=== PATIENT | female | born 1985 | race African-American/Black ===

== ENCOUNTER 2017-08-14 01:53 | Emergency (ER) | payer OTHER ==
[2017-08-14 03:18] LABS: Hematocrit 33.5 % (36.0-47.0); Mean Platelet Volume 11.2 fL (7.4-10.4); Red Blood Cell (RBC) Count 4.51 mill/uL (4.20-5.40); White Blood Cell (WBC) Count 12.4 thou/uL (4.8-10.8)
[2017-08-14 03:26] LABS: ALT (SGPT) 9 U/L (8-55); AST (SGOT) 12 U/L (5-34); Alkaline Phosphatase 67 U/L (40-150); Anion Gap 10 mmol/L (10-20); BUN (Urea Nitrogen) 22 mg/dL (7.0-18.7); Bilirubin, Total 0.2 mg/dL (0.2-1.2); CK (CPK) 103 U/L (29-168); Calc. Creatinine Clearance 0 mL/min (70-130); Calcium 9.7 mg/dL (7.8-10.44); Carbon Dioxide 24 mmol/L (22-29); Chloride 105 mmol/L (98-107); Estimated GFR-MDRD 80; Globulin 3.8 g/dL (2.4-3.5); Protein, Total 7.8 g/dL (6.0-8.3)
[2017-08-14 03:31] LABS: Troponin I Less than 0.010 ng/mL (< 0.028)
[2017-08-14 03:32] LABS: #Lymphocytes 2.7 thou/uL (1.20-3.40); #Monocytes 0.8 thou/uL (0.11-0.59); #Neutrophils 8.9 thou/uL (1.40-6.50); %Basophils 0.2 % (0.0-1.0); %Eosinophils 0.2 % (0.0-10.0); %Lymphocytes 21.9 % (21.0-51.0); %Monocytes 6.4 % (0.0-10.0)
--- NOTE | 2017-08-14 08:28 | RAD ---
SINGLE VIEW OF THE CHEST: COMPARISON: 02/03/08. HISTORY: Coughing up blood. FINDINGS: Single view of the chest shows a normal sized cardiomediastinal silhouette. There is no evidence of consolidation, mass, or pleural effusion. The bones are unremarkable. IMPRESSION: No evidence of acute cardiopulmonary disease. POS: [facility]
== END 2017-08-14 04:55 | disposition home or self-care (01) ==
LOC: ERS 01:53
DX: F43.9 Reaction to severe stress, unspecified (principal); R94.31 Abnormal electrocardiogram [ECG] [EKG]; F41.9 Anxiety disorder, unspecified; Z79.899 Other long term (current) drug therapy
CPT/HCPCS: 36415; 71010; 80053; 82553; 84484; 85025; 93005

== ENCOUNTER 2017-08-19 10:06 | Emergency (ER) | payer OTHER ==
[2017-08-19 10:42] LABS: Hematocrit 36.9 % (36.0-47.0); Red Blood Cell (RBC) Count 4.92 mill/uL (4.20-5.40); White Blood Cell (WBC) Count 11.1 thou/uL (4.8-10.8)
[2017-08-19 10:43] LABS: #Basophils 0.1 thou/uL (0.0-0.2); #Eosinphils 0.1 thou/uL (0.0-0.7); #Lymphocytes 3.5 thou/uL (1.20-3.40); #Monocytes 0.5 thou/uL (0.11-0.59); #Neutrophils 6.9 thou/uL (1.40-6.50); %Basophils 0.8 % (0.0-1.0); %Eosinophils 1.1 % (0.0-10.0); %Lymphocytes 31.5 % (21.0-51.0); %Monocytes 4.6 % (0.0-10.0); Mean Platelet Volume 10.7 fL (7.4-10.4)
[2017-08-19 10:44] LABS: Hypochromia SLIGHT = 6-15 cells (100X) (0-5/hpf); Microcytosis SLIGHT = 6-15 cells (100X) (0-5/hpf); Polychromasia SLIGHT = 2-3 cells (100X) (0-2/hpf)
[2017-08-19 10:47] LABS: PTT 27.5 SEC (22.9-36.1)
[2017-08-19 11:00] LABS: AST (SGOT) 12 U/L (5-34); Alkaline Phosphatase 65 U/L (40-150); Anion Gap 13 mmol/L (10-20); BUN (Urea Nitrogen) 13 mg/dL (7.0-18.7); Bilirubin, Total 0.5 mg/dL (0.2-1.2); Calc. Creatinine Clearance 0 mL/min (70-130); Calcium 9.5 mg/dL (7.8-10.44); Carbon Dioxide 29 mmol/L (22-29); Chloride 102 mmol/L (98-107); Estimated GFR-MDRD 85; Globulin 3.7 g/dL (2.4-3.5); Protein, Total 7.7 g/dL (6.0-8.3)
[2017-08-19 11:01] LABS: ALT (SGPT) 12 U/L (8-55); CK (CPK) 113 U/L (29-168)
[2017-08-19 11:04] LABS: Troponin I Less than 0.010 ng/mL (< 0.028)
--- NOTE | 2017-08-19 11:23 | RAD ---
FRONTAL VIEW CHEST: Date: 08/19/17 COMPARISON: . INDICATION: Chest pain with nausea. FINDINGS: Lungs are clear. Cardiac silhouette is normal in size. No vascular congestion, effusion, or discrete pneumothorax. Osseous structures are within normal limits. IMPRESSION: No focal consolidation. POS: [facility]
[2017-08-19 11:30] LABS: Lipase 52 U/L (8-78)
[2017-08-19] MEDS ORDERED: Ketorolac Tromethamine 60 MG/2 ML VIAL ONE (11:49)
--- NOTE | 2017-10-02 15:07 | EKG ---
Test Reason : Blood Pressure : / mmHG Vent. Rate : 070 BPM Atrial Rate : 070 BPM P-R Int : 128 ms QRS Dur : 114 ms QT Int : 434 ms P-R-T Axes : 037 057 007 degrees QTc Int : 468 ms Normal sinus rhythm Nonspecific T wave abnormality Prolonged QT Abnormal ECG When compared with ECG of 14-aug-2017 No changes Confirmed by LOU LÓPEZ D.O. ([id number]), movie editor MARKELL NUNEZ ([id number]) on 10/02/2017 3:07:42 PM Referred By: Confirmed By:LOU LÓPEZ D.O.
== END 2017-08-19 12:05 | disposition home or self-care (01) ==
LOC: ERS 10:06
DX: R07.2 Precordial pain (principal); F41.9 Anxiety disorder, unspecified; Z79.899 Other long term (current) drug therapy
CPT/HCPCS: 36415; 71010; 80053; 82553; 83690; 84484; 85025; 85610; 85730; 93005; 96372; J1885

== ENCOUNTER 2017-09-30 18:26 | Emergency (ER) | payer OTHER ==
--- NOTE | 2017-09-30 19:49 | RAD ---
CHEST TWO VIEWS: 09/30/17 HISTORY: Cough. Heart size and mediastinum are within normal limits. The lungs are clear of infiltrates. There are no significant bony findings. IMPRESSION: No active intrathoracic disease. POS: [facility]
== END 2017-09-30 20:15 | disposition home or self-care (01) ==
LOC: SCSER 18:26
DX: O99.89 Other specified diseases and conditions complicating pregnancy, childbirth and the puerperium (principal); R05 Cough; O99.341 Other mental disorders complicating pregnancy, first trimester; F41.9 Anxiety disorder, unspecified; Z3A.01 Less than 8 weeks gestation of pregnancy
CPT/HCPCS: 71020

== ENCOUNTER 2018-10-17 21:16 | Emergency (ER) | payer OTHER ==
[2018-10-17 22:14] LABS: Pregnancy Test - Urine (BHCG) Negative (Negative)
[2018-10-17] MEDS ORDERED: Ketorolac Tromethamine 60 MG/2 ML VIAL ONE (22:14)
[2018-10-17] MEDS ORDERED: Acetaminophen 500 MG TAB ONE (22:14)
[2018-10-17] MEDS ORDERED: diphenhydrAMINE 25 MG CAP ONE (22:14)
[2018-10-17] MEDS ORDERED: Prochlorperazine 10 MG/2 ML VIAL ONE (22:14)
[2018-10-17 22:15] LABS: Pregu Control Background? CLEAR/WHITE (CLR/WHITE); Pregu Control Bar Appear? YES (CONTROL BAR); Specific Gravity 1.023 (1.002-1.036)
== END 2018-10-17 22:58 | disposition home or self-care (01) ==
LOC: SCSER 21:16
DX: G43.909 Migraine, unspecified, not intractable, without status migrainosus (principal); F41.9 Anxiety disorder, unspecified; F32.9 Major depressive disorder, single episode, unspecified; Z79.899 Other long term (current) drug therapy
CPT/HCPCS: 81025; 96372; J0780; J1885

== ENCOUNTER 2022-09-01 10:12 | Inpatient (IN) | payer OTHER ==
[2022-09-01 11:05] LABS: Bilirubin Negative (Negative); Blood, Urine Negative (Negative); Clarity Clear (Clear); Glucose, Urine (Dipstick) Negative (Negative); Ketone, Urine Negative (Negative); Leukocyte Negative (Negative); Nitrite Negative (Negative); Protein, Urine (Dipstick) Negative (Neg-Trace); Specific Gravity, Urine 1.025 (1.005-1.030); Urobilinogen 0.2 mg/dL (Less than 2)
[2022-09-01 11:06] LABS: Bacteria/HPF None Seen HPF (None Seen); RBC/HPF 0-3 HPF (0-3); Squamous Epithelial 0-3 HPF (0-3); WBC/HPF 0-3 HPF (0-3)
[2022-09-01 11:25] LABS: Amphetamine Not Detected (NotDetected); Barbiturates Screen Not Detected (NotDetected); Benzodiazepine Screen Not Detected (NotDetected); Cocaine Metabolite Screen Not Detected (NotDetected); Methadone Not Detected (NotDetected); Methamphetamine Not Detected (NotDetected); Opiate Screen Not Detected (NotDetected); Oxycodone Screen Not Detected (NotDetected); Phencyclidine (PCP) Not Detected (NotDetected); THC/Cannabinoid Screen Not Detected (NotDetected); Tricyclic Screen Not Detected (NotDetected)
[2022-09-01 11:26] LABS: ALT (SGPT) 10 U/L (8-55); AST (SGOT) 13 U/L (5-34); Acetaminophen Less than 10.0 mcg/mL (10.0-30.0); Albumin 4.1 g/dL (3.5-5.0); Alcohol Less than 10 mg/dL (Less than 10); Alkaline Phosphatase 67 U/L (40-110); Anion Gap 12 mmol/L (10-20); BUN (Urea Nitrogen) 12 mg/dL (7.0-18.7); Bilirubin, Total 0.4 mg/dL (0.2-1.2); Calc. Creatinine Clearance 0 mL/min (70-130); Calcium 8.8 mg/dL (7.8-10.44); Carbon Dioxide 25 mmol/L (22-29); Chloride 106 mmol/L (98-107); Estimated GFR 79; Globulin 3.2 g/dL (2.4-3.5); Glucose 73 mg/dL (70-105); Potassium 3.5 mmol/L (3.5-5.1); Protein, Total 7.3 g/dL (6.0-8.3); Salicylate Less than 8.0 mg/dL (15.0-30.0); Sodium 139 mmol/L (136-145)
[2022-09-01 11:29] LABS: Mean Corpuscular HGB CONC 31.8 g/dL (32.0-36.0); Mean Corpuscular Hemoglobin 23.7 pg (27.0-31.0); Mean Corpuscular Volume 74.8 fl (78.0-98.0); Mean Platelet Volume 9.2 fL (7.4-10.4); Platelet Count 180 10x3/uL (130-400); RBC Distribution Width 14.4 % (11.5-14.5); Red Blood Cell (RBC) Count 4.65 mill/uL (4.20-5.40); White Blood Cell (WBC) Count 9.1 10x3/uL (4.8-10.8)
[2022-09-01 11:59] LABS: #Eosinphils 0.1 thou/uL (0.0-0.7); #Lymphocytes 2.3 thou/uL (1.20-3.40); #Monocytes 0.6 thou/uL (0.11-0.59); #Neutrophils 6.1 thou/uL (1.40-6.50); %Basophils 0.1 % (0.0-1.0); %Eosinophils 0.6 % (0.0-10.0); %Lymphocytes 25.7 % (21.0-51.0); %Monocytes 6.9 % (0.0-10.0); %Neutrophils 66.7 % (42.0-75.0); Band 8 % (5-11); Eosinophils 1 % (0-10); Lymphocytes 25 % (21-51); MDiff Complete? YES; Microcytosis SLIGHT = 6-15 cells (100X) (0-5/hpf); Monocytes 6 % (0-10); Neutrophil 60 % (42-75); Polychromasia SLIGHT = 2-3 cells (100X) (0-2/hpf)
[2022-09-01] MEDS ORDERED: Acetaminophen 325 MG TAB PO PRN (14:49)
[2022-09-01 17:14] VITALS: BMI 32.0
[2022-09-02] MEDS: Melatonin 3 MG TAB PO PRN ×2 (02:24→22:14)
[2022-09-02 05:46] LABS: #Lymphocytes 2.1 thou/uL (1.20-3.40); #Monocytes 0.5 thou/uL (0.11-0.59); #Neutrophils 5.4 thou/uL (1.40-6.50); %Basophils 0.1 % (0.0-1.0); %Eosinophils 0.3 % (0.0-10.0); %Lymphocytes 26.1 % (21.0-51.0); %Monocytes 6.5 % (0.0-10.0); %Neutrophils 66.9 % (42.0-75.0); Hemoglobin 9.8 g/dL (12.0-16.0); Mean Corpuscular HGB CONC 31.7 g/dL (32.0-36.0); Mean Corpuscular Hemoglobin 23.6 pg (27.0-31.0); Mean Corpuscular Volume 74.3 fl (78.0-98.0); Mean Platelet Volume 8.3 fL (7.4-10.4); Platelet Count 153 10x3/uL (130-400); RBC Distribution Width 14.5 % (11.5-14.5); Red Blood Cell (RBC) Count 4.14 mill/uL (4.20-5.40)
[2022-09-02 06:01] LABS: Anion Gap 12 mmol/L (10-20); BUN (Urea Nitrogen) 8 mg/dL (7.0-18.7); Calc. Creatinine Clearance 136 mL/min (70-130); Calcium 8.7 mg/dL (7.8-10.44); Carbon Dioxide 23 mmol/L (22-29); Chloride 108 mmol/L (98-107); Estimated GFR 92; Glucose 113 mg/dL (70-105); Potassium 3.4 mmol/L (3.5-5.1); Sodium 140 mmol/L (136-145)
[2022-09-02] MEDS ORDERED: Potassium Chloride 20 MEQ TAB PO SCH (06:15)
[2022-09-02] MEDS ORDERED: Electrolyte Replacement Protocol 1 EACH FS SCH (08:00)
[2022-09-02] MEDS ORDERED: Electrolyte Replacement Protocol FS PRN (08:30)
[2022-09-02 08:52] LABS: Phosphorus 3.9 mg/dL (2.3-4.7)
[2022-09-02 08:53] LABS: Magnesium 1.9 mg/dL (1.6-2.6)
[2022-09-02] MEDS ORDERED: Magnesium 2 GM/50 ML(in water) 2 GM in Premix Bag 1 BAG IVPB SCH (10:00)
[2022-09-02 11:15] LABS: Potassium 3.8 mmol/L (3.5-5.1)
[2022-09-02] MEDS ORDERED: Melatonin 3 MG TAB PO SCH (23:59)
[2022-09-03 08:47] VITALS: BP 132/84; TEMP 97.9
[2022-09-04] MEDS ORDERED: FLU VACC QS2022-23(6MOS UP)/PF 60 MCG/0.5 ML SYRINGE IM ONE (17:15)
== END 2022-09-03 12:15 | disposition short-term general hospital (02) | DRG 918 ==
LOC: ERS 10:12 → NEURO 16:43
PROVIDERS: ADMIT Student in an Organized Health Care Education/Training Program; ATTEND Internal Medicine
DX: T43.292A Poisoning by other antidepressants, intentional self-harm, initial encounter (principal); F32.A Depression, unspecified; F17.210 Nicotine dependence, cigarettes, uncomplicated; T43.592A Poisoning by other antipsychotics and neuroleptics, intentional self-harm, initial encounter; T43.222A Poisoning by selective serotonin reuptake inhibitors, intentional self-harm, initial encounter; E78.5 Hyperlipidemia, unspecified; E87.6 Hypokalemia; E83.42 Hypomagnesemia; E66.9 Obesity, unspecified; Z20.822 Contact with and (suspected) exposure to COVID-19; D50.9 Iron deficiency anemia, unspecified; Z90.49 Acquired absence of other specified parts of digestive tract; Y92.9 Unspecified place or not applicable; Z98.51 Tubal ligation status; Z98.890 Other specified postprocedural states; Z68.32 Body mass index [BMI] 32.0-32.9, adult
CPT/HCPCS: 36415; 80048; 80053; 80306; 80307; 81003; 83735; 84100; 85025; 93005; J3475; U0003; U0005

== ENCOUNTER 2022-10-20 22:46 | Emergency (ER) | payer OTHER | END 2022-10-21 02:40 | disposition left against medical advice (07) | LOC: ERS 22:46 | DX: Z53.21 Procedure and treatment not carried out due to patient leaving prior to being seen by health care provider (principal) ==

== ENCOUNTER 2024-12-01 13:29 | Emergency (ER) | payer SELFPAY ==
[2024-12-01 14:38] LABS: Troponin I Less than 0.010 ng/mL (< 0.028)
[2024-12-01 15:55] LABS: ALT (SGPT) 11 U/L (Less than 34); AST (SGOT) 21 U/L (11-34); Albumin 3.6 g/dL (3.1-4.5); Alkaline Phosphatase 69 U/L (40-110); Anion Gap 13 mmol/L (10-20); BUN (Urea Nitrogen) 9 mg/dL (7.0-18.7); Bilirubin, Total 0.3 mg/dL (0.3-1.2); Calc. Creatinine Clearance 0 mL/min (70-130); Calcium 9.2 mg/dL (7.8-10.44); Carbon Dioxide 20 mmol/L (22-29); Chloride 108 mmol/L (98-107); Estimated GFR 91; Globulin 3.7 g/dL (2.4-3.5); Glucose 145 mg/dL (70-105); Lipase 39 U/L (8-78); Potassium 3.9 mmol/L (3.5-5.1); Protein, Total 7.3 g/dL (6.0-8.3); Sodium 137 mmol/L (136-145)
[2024-12-01] MEDS ORDERED: Mag-Al 1200 mg/1200 mg/30 ML UDCUP ONE (16:08)
[2024-12-01] MEDS ORDERED: Lidocaine Viscous Sol 2% 15 ml UD Cup ONE (16:12)
[2024-12-01 16:30] LABS: Macrocytosis SLIGHT = 6-15 cells HPF (0-5); Ovalocytes SLIGHT = 2-5 cells HPF (0-1); Platelet Adequacy Comment Platelets Normal
[2024-12-01 16:31] LABS: #Basophils Less than 0.03 10x3/uL (0.0-0.2); %Basophils 0.3 % (0.0-1.0); %Eosinophils 1.2 % (0.0-10.0); %Lymphocytes 26.9 % (21.0-51.0); %Monocytes 5.3 % (0.0-10.0); %Neutrophils 65.9 % (42.0-75.0); Hematocrit 35.9 % (36.0-47.0); Hemoglobin 11.3 g/dL (12.0-16.0); Mean Corpuscular HGB CONC 31.5 g/dL (32.0-36.0); Mean Corpuscular Hemoglobin 23.2 pg (27.0-31.0); Mean Corpuscular Volume 73.7 fL (78.0-98.0); Platelet Count 263 10x3/uL (130-400); RBC Distribution Width 15.6 % (11.5-14.5); Red Blood Cell (RBC) Count 4.87 mill/uL (4.20-5.40)
== END 2024-12-01 16:20 | disposition home or self-care (01) ==
LOC: ERS 13:29
DX: K21.9 Gastro-esophageal reflux disease without esophagitis (principal); F17.210 Nicotine dependence, cigarettes, uncomplicated
CPT/HCPCS: 36415; 71045; 80053; 83690; 84484; 85025; 93005